=== PATIENT | female | born 1985 | race Asian ===

== ENCOUNTER 2016-11-22 16:28 | Emergency (ER) | payer OTHER ==
[2016-11-22 16:33] VITALS: RESP 16; TEMP 98.2
--- NOTE | 2016-11-22 16:40 | EDPHY ---
H & P Stated Complaint: 11/20 cervical procedure heaviness in chest since yest. Time Seen by Provider: 11/22/16 16:38 HPI/ROS: CHIEF COMPLAINT: Chest pressure, dyspnea HISTORY OF PRESENT ILLNESS: The patient is a 31 y/o female arriving with her complaining of central chest "stiffness" and dyspnea onset last night. She had a procedure to remove cervical polyps while under anesthesia 2 days ago. She does not know if she was intubated or not. She says her discomfort "feels like something is stuck" in her chest. Her symptoms are aggravated by eating and deep inspiration. She notes she has not had a bowel movement since before the surgery 3 days ago. She denies nausea, but tried to make herself vomit to improve symptoms. She is not currently using pain medication and has not tried any antacid medication for her symptoms. She denies leg pain or swelling, nausea, abdominal pain, fever, cough. No history of acid reflux. No FH of VTE. REVIEW OF SYSTEMS: A ten point review of systems was performed and is negative with the exception of the items mentioned in the HPI. - Personal History LMP (Females 10-55): Irregular Current Tetanus/Diphtheria Vaccine: Yes Current Tetanus Diphtheria and Acellular Pertussis (TDAP): Yes - Medical/Surgical History PMH: Cervical polyps and surgical removal 11/20/16. No significant family history. Hx Asthma: No Hx Chronic Respiratory Disease: No Hx Diabetes: No Hx Cardiac Disease: No Hx Renal Disease: No Hx Cirrhosis: No Hx Alcoholism: No Hx HIV/AIDS: No Hx Splenectomy or Spleen Trauma: No - Social History Smoking Status: Never smoked Additional Social History: Nonsmoker. No alcohol use. No illicit drug use. at bedside. Works in [employer]. - Physical Exam Exam: General Appearance: Alert. Vital signs reviewed. Eyes: Pupils equal and round, no conjunctival injection, no discharge. Anicteric. ENT, Mouth: Mucous membranes are moist, no oropharyngeal erythema or edema. Neck: No lymphadenopathy, supple. Respiratory: Lungs are clear to auscultation; no wheezes, rales, or rhonchi. Cardiovascular: Regular rate and rhythm; no murmur, rub, or gallop. Chest: No crepitus. No reproducible tenderness. Gastrointestinal: Abdomen is soft with mild midepigastric and RUQ tenderness, no masses or organomegaly, bowel sounds normal. Skin: Warm and dry, no rashes on exposed skin, normal color. Back: Nontender to palpation over the thoracolumbar spine. No CVAT. Extremities: No lower extremity edema, no calf tenderness or swelling. Neurological: Alert and oriented. Moving all four extremities easily and equally. Psychiatric: Normal affect. Constitutional: Initial Vital Signs Temperature (C) 36.8 C 11/22/16 16:31 Heart Rate 68 11/22/16 16:31 Respiratory Rate 16 11/22/16 16:31 Blood Pressure 109/67 11/22/16 16:31 O2 Sat (%) 99 11/22/16 16:31 O2 Delivery Mode Room Air Allergies/Adverse Reactions: No Known Allergies Allergy (Unverified 11/22/16 16:33) Medical Decision Making - Diagnostics EKG Interpretation: Twelve lead EKG reviewed and interpreted by me in [facility]. No acute ischemic changes. Imaging Results: Two view CXR reviewed by me in PACS. No pneumonia, pneumothorax, signs of bronchitis per radiology report. Imaging: I viewed and interpreted images myself ED Course/Re-evaluation: IV established. Labs drawn including CBC, CHEM. Patient placed on surveillance monitor. Chest x-ray ordered. The 12 lead EKG was interpreted by myself. Sinus rhythm 64. See hard copy and/ or "traceOWMer" electronic copy for interpretation. 1830: Chest x-ray shows no acute process. Reassessed patient and discussed work up thus far. GI cocktail administered for continued symptoms. 1920: Reassessed patient. She feels almost completely improved after GI cocktail. Abdomen is benign. She feels ready for discharge. I've recommended using OTC Zantac for symptoms and follow up with her PCP on Friday for unimproved symptoms. Return precautions given. HEART score is zero--very low risk of major cardiac event in next six weeks. It is possible that this is irritation secondary to endotracheal intubation ( not sure if she was intubated or not for her procedure three days ago)--I would have expected her to notice this immediately post-op rather than three days out. No signs of PNA or PTX on XSR. GERD is a strong possibility. - Data Points Laboratory Results: Laboratory Results 11/22/16 16:45 11/22/16 16:45 Medications Given: Discontinued Medications Al Hydroxide/Mg Hydroxide (Maalox Susp) 30 ml PO ONCE ONE Stop: 11/22/16 18:35 Last Admin: 11/22/16 18:41 Dose: 30 ml Hyoscyamine Sulfate (Levsin, Hyomax-Sl) 0.25 mg PO ONCE ONE Stop: 11/22/16 18:35 Last Admin: 11/22/16 18:41 Dose: 0.25 mg Famotidine/Sodium Chloride (Pepcid 20 Mg (Premix)) 50 mls @ 200 mls/hr IV EDNOW ONE Stop: 11/22/16 17:12 Last Admin: 11/22/16 17:07 Dose: 50 mls Lidocaine (Lidocaine 2% Viscous) 15 ml PO ONCE ONE Stop: 11/22/16 18:35 Last Admin: 11/22/16 18:41 Dose: 15 ml Departure - Departure Disposition: Home, Routine, Self-Care Clinical Impression: Epigastric abdominal pain Condition: Good Instructions: Gastroesophageal Reflux Disease (ED), Acute Abdominal Pain (ED) Additional Instructions: 1. Take Zantec as directed on the packaging for symptoms. 2. Follow up with your primary care provider on Friday for continued symptoms. 3. Return to the ED for severe pain, shortness of breath, uncontrollable vomiting, or other worsening of condition. Referrals: Corina Chaney MD [[facility] [place] Primary Care Provider] - As per Instructions Report Scribed for: Brigid Walker Report Scribed by: Victoria Olmos Date of Report: 11/22/16 Time of Report: 16:48 Physician Review and Approval Statement: 11/22/16 16:40 Portions of this note were transcribed by the behavioral medical director. I, Dr. Brigid Walker, personally performed the history, physical exam, and medical decision- making; and confirmed the accuracy of the information in the transcribed note.
--- NOTE | 2016-11-22 16:43 | CPEKG ---
Heart Rate: 64 RR Interval: 938 P-R Interval: 132 QRSD Interval: 80 QT Interval: 400 QTC Interval: 413 P [place]: 68 QRS [place]: 42 T Wave [place]: 45 EKG Severity - NORMAL ECG - EKG Impression: SINUS RHYTHM Electronically Signed By: Brigid Walker 23-Nov-2016 00:18:40
[2016-11-22] MEDS ORDERED: FAMOTIDINE 20 MG/NACL 50 ML IV ONE (16:58)
[2016-11-22 17:05] LABS: % IMMATURE GRANULYOCYTES 0.2 % (0.0-1.1); ABSOLUTE IMMATURE GRANULOCYTES 0.01 10^3/uL (0.00-0.10); ADD DIFF? NO; ADD MORPH? NO; ADD SCAN? NO; ATYPICAL LYMPHOCYTE FLAG 10 (0-99); FRAGMENT RBC FLAG 0 (0-99); HEMATOCRIT 38.5 % (38.0-47.0); HEMOGLOBIN 13.1 g/dL (12.6-16.3); LEFT SHIFT FLG 0 (0-99); LIPEMIA HEMOLYSIS FLAG 90 (0-99); MEAN CELL HEMOGLOBIN 27.8 pg (27.9-34.1); MEAN CELL VOLUME 81.6 fL (81.5-99.8); MEAN PLATELET VOLUME 11.9 fL (8.7-11.7); PLATELET CLUMPS FLAG 0 (0-99); PLATELET COUNT 217 10^3/uL (150-400); RED BLOOD CELL COUNT 4.72 10^6/uL (4.18-5.33); RED CELL DISTRIBUTION WIDTH 13.4 % (11.5-15.2)
[2016-11-22 17:13] LABS: ALANINE AMINOTRANSFERASE 36 IU/L (9-52); ALBUMIN 4.1 g/dL (3.5-5.0); ALKALINE PHOSPHATASE 42 IU/L (38-126); ANION GAP 8 mEq/L (8-16); ASPARTATE AMINOTRANSFERASE 23 IU/L (14-46); BILIRUBIN,TOTAL 0.5 mg/dL (0.1-1.4); BILIRUBIN-CONJUGATED 0.3 mg/dL (0.0-0.5); BILIRUBIN-UNCONJUGATED 0.2 mg/dL (0.0-1.1); CARBON DIOXIDE 24 mEq/l (22-31); CHLORIDE 107 mEq/L (97-110); CREATININE 0.7 mg/dL (0.6-1.0); GLOMERULAR FILTRATION RATE > 60; GLUCOSE 72 mg/dL (70-100); SODIUM 139 mEq/L (134-144)
[2016-11-22] MEDS ORDERED: LIDOCAINE 2% VISCOUS 15 ML UDCUP PO ONE (18:34)
[2016-11-22] MEDS ORDERED: MAG HYDROX/AL HYDROX/SIMETH 30 ML UDCUP PO ONE (18:34)
[2016-11-22] MEDS ORDERED: HYOSCYAMINE SULFATE 0.125 MG TAB PO ONE (18:34)
[2016-11-22 19:27] VITALS: BP 96/56; PULSE 67; O2SAT 92
== END 2016-11-22 19:32 | disposition home or self-care (01) ==
DX: R10.13 Epigastric pain (principal)
CPT/HCPCS: 96374

== ENCOUNTER → 2017-09-16 | Outpatient (CLI) | payer OTHER | LOC: FIMAGING 08:39 | PROVIDERS: ATTEND Advanced Practice Midwife | DX: O09.812 Supervision of pregnancy resulting from assisted reproductive technology, second trimester (principal); Z3A.24 24 weeks gestation of pregnancy ==

== ENCOUNTER 2018-01-08 17:22 | Inpatient (IN) | payer OTHER ==
[2018-01-08] MEDS ORDERED: AMPICILLIN SODIUM 2 GM in NS 100 ML IV ONE (18:40)
[2018-01-08] MEDS ORDERED: TERBUTALINE SULFATE 1 MG/ML VIAL IV PRN (18:40)
[2018-01-08] MEDS ORDERED: LR 1,000 ML IV PRN (18:40)
[2018-01-08] MEDS ORDERED: OLIVE OIL 118 ML BTL MISC PRN (18:40)
[2018-01-08] MEDS ORDERED: EPSOM SALT 454 GM TP PRN (18:40)
[2018-01-08] MEDS ORDERED: OXYTOCIN/RINGERS LACTATE 1,000 ML IV PRN (18:40)
[2018-01-08] MEDS ORDERED: LIDOCAINE 1% 300 MG/30 ML SDV SC PRN (18:40)
[2018-01-08] MEDS ORDERED: MISOPROSTOL 200 MCG TAB PR PRN (18:40)
[2018-01-08] MEDS ORDERED: IBUPROFEN 600 MG TAB PO PRN (18:40)
[2018-01-08 19:14] LABS: PLATELET COUNT 129 10^3/uL (150-400)
--- NOTE | 2018-01-08 19:15 | PDGENHP ---
History and Physical History and Physical: CARE: [facility] HPI: Patient is a 32 yo @41-0 wks that presents to L&D from office for cat 2 FHR tracing. Cyr balloon was placed @ 1600. She denies any LOF, VB. She does report dark brown spotting since this morning. She reports +FM. EDC: 01/01/18 which is based on FET consistent with Ultrasound at 7 weeks. Her is complicated by: IVF, right intramural fibroid, hypothyroid, vitamin D Deficiency, GBS bacteruria, anemia Review of Systems: Constitutional: Denies any fever, chills, or fatigue HEENT: denies any visual changes, difficulty swallowing, hearing loss Cardiovascular: Denies any chest pain, palpitations, leg swelling Respiratory: denies any cough, wheezing, or shortness of breathe GI: Denies any nausea, vomiting, diarrhea, constipation : denies any dysuria, urgency, frequency, vaginal bleeding Musculoskeletal: denies any muscle or bone pain Skin: denies any rashes Neuro: denies any headache, seizures, lightheadedness, dizziness, or loss of consciousness Psychiatric: denies any depression, anxiety, or SI/HI thoughts HISTORY: Previous OB history: MAB with D&C 2012 Past medical history: hypothyroid, vitamin D deficiency Past surgical history: Hysteroscopy- polyp 2017 Medications: PNV, vitamin D, synthyroid, folic acid, DHA, iron Allergies (list reaction): NKDA LABS: Rh: B+ ABS: Neg Rubella: Immune HbsAg: NR HIV: NR VDRL: NR 1hr: 73 GC: Neg Chlamydia: Neg Pap: Normal GBS: + BMI: (prepreg) 25 PHYSICAL EXAM: Constitutional: WN, A&Ox3 HEENT: normocephalic atraumatic, supple Heart: RRR, no murmur Chest: CTA-B Abdomen: Soft, nontender, gravid SVE: 1/80/-1, posterior (per exam in office when cyr was placed) Extremities: trace edema, negative homans sign Neuro: grossly normal Psych: normal affect assessment: Reassuring FHTs, baseline 120 +accels, +variable decels, moderate variability Contractions: toco none Assessment: 1) 32yo [id number] with IUP@41-0 wks 2) PD IOL with Cyr bulb 3) GBS + 4) Cat 2 FHR tracing Plan: 1) Admit to L&D 2) cont monitoring at this time 3) anticipate starting pitocin in AM 4) start IV abx @ 0400
[2018-01-08] MEDS ORDERED: LR 500 ML IV PRN (21:08)
[2018-01-08] MEDS ORDERED: CALCIUM CARBONATE 500 MG CHEWABLE TAB PO PRN (21:13)
[2018-01-08] MEDS ORDERED: ZOLPIDEM TARTRATE 5 MG TAB PO PRN (21:14)
[2018-01-08] MEDS ORDERED: OXYTOCIN/RINGERS LACTATE 500 ML IV SCH (21:30)
[2018-01-08] MEDS ORDERED: AMPICILLIN SODIUM 1 GM in NS 100 ML IV SCH (22:40)
[2018-01-09] MEDS ORDERED: AMPICILLIN SODIUM 2 GM/10 ML VIAL ONE (04:48)
[2018-01-09] MEDS ORDERED: AMPICILLIN SODIUM 2 GM in NS 100 ML IV ONE (04:52)
--- NOTE | 2018-01-09 06:26 | OBPROG ---
Labor Progress Note Assessment/Plan: Assessment: [id number] with IUP@41-1wks PD IOL GBS Positive cat 2 FHR tracing Plan: start pit once cat 1 FHR tracing AROM once abx in x 4 hr or PRN pain management PRN/WILLIE when pt request 01/09/18 06:23 Subjective/Intrapartum Course: 01/09/18 06:26 Pt feeling some discomfort, denies any need for pain relief at this time, states she is planning WILLIE once pain increases. FOB at BS and supportive. Objective: 01/08/18 18:48 Patient ABO/Rh B POSITIVE 01/08/18 18:48 - SVE Dilation (cm): 4 Effacement (%): 80 Station: -1 (very posterior cervix, pt does not tolerate exams well) - Contraction Pattern Assessment Current Contraction Pattern: Irregular - FHR Assessment [place] FHR (bpm): 130 FHR Pattern Variability: Moderate FHR Category: 2 (variable decelerations noted.) - Physical Exam General Appearance: WD/WN, alert Oxytocin Orders Assessment - Pre-Induction/Augmentation Assessment Gestational Age: 41 week(s) and 0 day(s) ICD10 Worksheet Patient Problems: Problems Problem Status Onset Encounter for induction of labor Acute Positive GBS test Acute Post-dates Acute - ICD10 Problem Qualifiers (1) Post-dates (2) Positive GBS test (3) Encounter for induction of labor
[2018-01-09] MEDS: LEVOTHYROXINE 25 MCG TAB PO SCH (07:04)
[2018-01-09] MEDS ORDERED: OXYTOCIN 10 UNIT/ML VIAL ONE (07:48)
[2018-01-09] MEDS ORDERED: MISOPROSTOL 200 MCG TAB ONE (07:48)
[2018-01-09] MEDS ORDERED: LIDOCAINE 1% 300 MG/30 ML SDV ONE (07:48)
[2018-01-09] MEDS ORDERED: OLIVE OIL 118 ML BTL ONE (07:48)
[2018-01-09] MEDS ORDERED: TERBUTALINE SULFATE 1 MG/ML VIAL ONE (07:48)
[2018-01-09] MEDS ORDERED: AMMONIA AROMATIC 1 EACH AMP IH ONE (07:48)
[2018-01-09] MEDS ORDERED: BUPIVACAINE 0.25% 30 ML SDV ONE (10:14)
[2018-01-09] MEDS ORDERED: PHENYLEPHRINE HCL 100 MCG/ML SYR ONE ×2 (10:14→11:45)
[2018-01-09] MEDS ORDERED: LR 500 ML IV SCH (10:30)
--- NOTE | 2018-01-09 10:33 | OBPROG ---
Labor Progress Note Assessment/Plan: Assessment: I had a long talk with the patient and her this morning regarding their progress, the baby's FHR tracing and these significant decelerations remote from delivery. I offered that she is having decels with most contractions so she is essentially already failing a contraction stress test. Discussed RBA, and ultimately recommended , which they are comfortable with. Consents signed, orders placed. Weight-based Ancef. Subjective/Intrapartum Course: 01/09/18 06:26 Pt feeling some discomfort, denies any need for pain relief at this time, states she is planning WILLIE once pain increases. FOB at BS and supportive. 01/09/18 16:48 I assumed care for Suzy at 0700 this AM. At that point she had recently been checked and was found to be 4cm, cyr balloon out, still intact, having irregular painful contractions. Baby having intermittent variable and 2-3 quite late and prolonged decelerations, not on Pitocin. 01/09/18 16:54 Objective: 01/08/18 18:48 Patient ABO/Rh B POSITIVE 01/08/18 18:48 - SVE Dilation (cm): 4 - Contraction Pattern Assessment Current Contraction Pattern: Irregular - Physical Exam General Appearance: WD/WN, alert, mild distress CNM Assessment - Uterine Assessment Contraction Strength: Moderate Contraction Frequency (minutes): 6-7 Oxytocin Orders Assessment - Pre-Induction/Augmentation Assessment Gestational Age: 41 week(s) and 0 day(s) - Heart Rate Pattern [place] FHR Baseline (bpm): 135 FHR Category: 2 FHR Pattern Variability: Moderate FHR Accelerations: Present FHR Decelerations: Variable ICD10 Worksheet Patient Problems: Problems Problem Status Onset Encounter for induction of labor Acute Positive GBS test Acute Post-dates Acute
[2018-01-09] MEDS ORDERED: LR 500 ML IV ONE ×2 (10:34→10:35)
[2018-01-09] MEDS ORDERED: ceFAZolin 2 GM/DEXTROSE 100 ML IV ONE (10:34)
[2018-01-09] MEDS ORDERED: DEXAMETHASONE 4 MG/ML VIAL ONE (10:39)
[2018-01-09] MEDS ORDERED: OXYTOCIN 100 UNITS/10 ML VIAL ONE (10:39)
[2018-01-09] MEDS ORDERED: ONDANSETRON 4 MG/2 ML VIAL ONE (10:39)
[2018-01-09] MEDS ORDERED: LR 1,000 ML IV SCH ×2 (11:00)
[2018-01-09] MEDS ORDERED: ePHEDrine SULFATE 25 MG/5 ML SYR ONE (11:20)
[2018-01-09] MEDS ORDERED: OXYCODONE/APAP 5/325 TAB PO PRN (11:29)
[2018-01-09] MEDS ORDERED: fentaNYL 100 MCG/2 ML INJ IVP PRN (11:29)
[2018-01-09] MEDS ORDERED: HYDROmorphONE/DILAUDID 1 MG/ML INJ IVP PRN (11:29)
[2018-01-09] MEDS ORDERED: PHENYLEPHRINE HCL 100 MCG/ML SYR IVP PRN (11:29)
--- NOTE | 2018-01-09 11:29 | PREANESOB ---
Obstetric Pre-Anesthesia Info - General Info Proposed Procedure: : 2 Para: 0 BENNIE: 01/01/18 Gestational Age: 41 week(s) and 0 day(s) - Labor Status Cervical Dilation per last OB SVE: 4 Station per last OB SVE: -1 (very posterior cervix, pt does not tolerate exams well) Indications for Current Section: Non-reas. Status Anesthesia Allergies/Adverse Reactions: Allergy/AdvReac Type Severity Reaction Status Date / Time No Known Allergies Allergy Unverified 11/22/16 16:33 Home Medications: Medication Instructions Recorded Synthroid 25 mcg (*) 01/09/18 Vitamin D3 4,000 i.unit 01/09/18 Visit Medications: Generic Name Dose Route Start Last Admin Trade Name Freq PRN Reason Stop Dose Admin Calcium Carbonate 500 mg 01/08/18 21:13 Tums PO 07/07/18 21:12 TID PRN Indigestion Ampicillin Sodium 1 gm/ Sodium 100 mls @ 200 mls/hr 01/08/18 22:40 01/09/18 09:22 Chloride IV 02/07/18 22:39 100 mls Q4H MANDEEP Administration Protocol Lactated Ringer's 1,000 mls @ 0 mls/hr 01/08/18 18:40 01/09/18 04:55 Lr IV 01/09/18 18:39 1,000 mls PRN PRN Administration SEE PROTOCOL CONDITIONS Protocol Per Protocol Oxytocin/Lactated Ringer's 1,000 mls @ 125 mls/hr 01/08/18 18:40 Pitocin 20 Units/Lr (Premix) IV PRN PRN Post bleeding Lactated Ringer's 500 mls @ 500 mls/hr 01/08/18 21:08 Lr IV 01/09/18 21:12 PRN PRN Maternal Hypotension Oxytocin/Lactated Ringer's 500 mls @ 0 mls/hr 01/08/18 21:30 01/09/18 10:09 Pitocin 30 Units/Lr (Premix) IV 07/07/18 21:29 500 mls CONT MANDEEP Administration Protocol Per Protocol Lactated Ringer's 1,000 mls @ 125 mls/hr 01/09/18 11:00 Lr IV 01/10/18 10:59 CONT MANDEEP Ibuprofen 600 mg 01/08/18 18:40 Motrin PO ONCE PRN post , pain Levothyroxine Sodium 25 mcg 01/09/18 06:00 01/09/18 07:04 Synthroid PO 07/08/18 05:59 25 mcg DAILY AT 6AM MANDEEP Administration Lidocaine HCl 300 mg 01/08/18 18:40 Lidocaine Hcl 1% SC 07/07/18 18:39 ONCE PRN episiotomy Magnesium Sulfate 454 gm 01/08/18 18:40 Epsom Salt TP 07/07/18 18:39 Q1H PRN perineal discomfort Misoprostol 800 - 1,000 mcg 01/08/18 18:40 Cytotec AK ONCE PRN Vaginal Atony/Bleeding [place] Oil 118 ml 01/08/18 18:40 Sweet Oil MISC 07/07/18 18:39 ONCE PRN perineal massage Terbutaline Sulfate 0.25 mg 01/08/18 18:40 Brethine IV 07/07/18 18:39 ONCE PRN Tachysystole Zolpidem Tartrate 5 mg 01/08/18 21:14 Ambien PO 07/07/18 21:13 HS PRN Sleep/Insomnia Discontinued Medications Generic Name Dose Route Start Last Admin Trade Name Freq PRN Reason Stop Dose Admin Ammonia (Aromatic Spirit) Confirm 01/09/18 07:48 Ammonia Aromatic Administered 01/09/18 07:49 Dose 1 each IH .STK-MED ONE Ampicillin Sodium Confirm 01/09/18 04:48 Ampicillin Administered 01/09/18 04:49 Dose 2 gm .ROUTE .STK-MED ONE Bupivacaine HCl Confirm 01/09/18 10:14 Sensorcaine 0.25% Sdv Administered 01/09/18 10:15 Dose 30 ml .ROUTE .STK-MED ONE Dexamethasone Confirm 01/09/18 10:39 Decadron Injection Administered 01/09/18 10:40 Dose 4 mg .ROUTE .STK-MED ONE Ephedrine Sulfate Confirm 01/09/18 11:20 Ephedrine Sulfate Administered 01/09/18 11:21 Dose 25 mg .ROUTE .STK-MED ONE Ampicillin Sodium 2 gm/ Sodium 110 mls @ 220 mls/hr 01/08/18 18:40 Chloride IV 01/08/18 19:09 ONCE ONE Protocol Ampicillin Sodium 2 gm/ Sodium 110 mls @ 220 mls/hr 01/09/18 04:52 01/09/18 05:01 Chloride IV 01/09/18 05:21 110 mls ONCE ONE Administration Protocol Lactated Ringer's 500 mls @ 0 mls/hr 01/09/18 10:30 Lr IV 01/09/18 10:31 CONT MANDEEP As Directed Cefazolin Sodium/Dextrose 100 mls @ 200 mls/hr 01/09/18 10:34 01/09/18 10:59 Ancef 2 Gm IV 01/09/18 11:03 100 mls ONCALL ONE Administration Protocol Lactated Ringer's 500 mls @ 0 mls/hr 01/09/18 10:34 Lr IV 01/09/18 10:35 ONCE ONE As Directed Lidocaine HCl Confirm 01/09/18 07:48 Lidocaine Hcl 1% Administered 01/09/18 07:49 Dose 300 mg .ROUTE .STK-MED ONE Misoprostol Confirm 01/09/18 07:48 Cytotec Administered 01/09/18 07:49 Dose 1,000 mcg .ROUTE .STK-MED ONE Morphine Sulfate Confirm 01/09/18 10:40 Morphine Sulfate Administered 01/09/18 10:41 Dose 10 mg .ROUTE .STK-MED ONE [place] Oil Confirm 01/09/18 07:48 Sweet Oil Administered 01/09/18 07:49 Dose 118 ml .ROUTE .STK-MED ONE Ondansetron HCl Confirm 01/09/18 10:39 Zofran Administered 01/09/18 10:40 Dose 4 mg .ROUTE .STK-MED ONE Oxytocin Confirm 01/09/18 07:48 Pitocin Administered 01/09/18 07:49 Dose 40 unit .ROUTE .STK-MED ONE Oxytocin Confirm 01/09/18 10:39 Pitocin Administered 01/09/18 10:40 Dose 100 units .ROUTE .STK-MED ONE Phenylephrine HCl Confirm 01/09/18 10:14 Neosynephrine Administered 01/09/18 10:15 Dose 1,000 mcg .ROUTE .STK-MED ONE Terbutaline Sulfate Confirm 01/09/18 07:48 Brethine Administered 01/09/18 07:49 Dose 1 mg .ROUTE .STK-MED ONE - Vital Signs Height/Weight (Nursing): Height 160.02 cm Weight 83.5 kg - Focused Exam Neck exam: FROM Mallampati Score: Class 2 Mouth exam: normal dental/mouth exam Pulmonary: clear to auscultation Cardiovascular: regular rate and rhythym Labs: 01/08/18 18:48 Patient ABO/Rh B POSITIVE 01/08/18 18:48 - Plan Consent Signed and on Chart: Yes Patient/Guardian Understands and Agrees to Plan: Yes
[2018-01-09] MEDS ORDERED: NALOXONE HCL 0.4 MG/ML INJ IVP PRN (11:30)
[2018-01-09] MEDS ORDERED: METOCLOPRAMIDE 10 MG/2 ML VIAL IVP PRN (11:30)
[2018-01-09] MEDS ORDERED: ONDANSETRON 4 MG/2 ML VIAL IVP PRN (11:30)
--- NOTE | 2018-01-09 12:31 | SUROPNOTE ---
[facility] Operative Report - Surgery Date of Operation: 01/09/18 Surgeon: Fritz Gutierrez Floral Designer: FELIX Pimentel Anesthesiologist: Nelson Sanchez MD Anesthesia: Spinal Pre-op Diagnosis: intollerance of labor, remote from delivery Post-op Diagnosis: Same, nuchal cord x 1, true knot in cord Procedure: Primary low transverse section Findings: ROP position, single nuchal cord, true knot in cord Inf/Abcess present in the surg proc area at time of surgery?: No EBL: 700cc Complications: None Specimen(s): Cord blood gasses collected, placenta sent to path. Technique: The patient was taken to the OR where spinal was was placed and anesthesia found to be adequate. The patient was then positioned supine with a leftward tilt and a time-out was performed. She was given weight-based antibiotics prior to skin incision. The abdomen was prepped and draped in normal sterile fashion. A Pfannenstiel skin incision was made with the scalpel and carried down to the fascia. The fascia was incised in the midline and the incision extended bilaterally sharply with scissors. The fascia was dissected off of the underlying rectus muscles superiorly and inferiorly also sharply using scissors. The rectus were in the midline and the peritoneum identified and entered bluntly without issue. The peritoneal incision was extended and the bladder blade was then placed. The vesicouterine junction was identified and a bladder flap created sharply and developed bluntly. A transverse incision was made with the scalpel in the lower uterine segment and extended with cephalad and caudad traction on the incision edges. The head was encountered and easily elevated out of the pelvis and delivered atraumatically, followed by the shoulders and body. Noted as above to be in ROP position, with single nuchal cord (reduced easily) and true knot in cord. The nose and mouth were bulb suctioned. We did wait for 60 seconds before clamping and cutting the cord and then the infant was handed to pediatric staff. Cord blood gases were sent and the placenta was sent to pathology. The uterus was then exteriorized and carefully wiped of all debris. The uterus was closed in two layers - the first layer was running with 180 0-vloc and the second a vertical imbricating layer using 0-vicryl. We did note a small hematoma forming at the left corner of the incision. I placed two large figure- of-eight sutures with 0-vicryl to try to address the source of that bleeding. Over many minutes of watching this we did not see the size change at all, and even looked smaller. The gutters were cleared of all clots. The uterine incision was reinspected and found to be hemostatic . The uterus was then returned to the abdomen. The fascia was elevated and the rectus muscles and subcutaneous tissues were found to be hemostatic. The fascia was closed with a running 0-Vicryl - single suture. The subcutaneous tissues were irrigated and hemostasis obtained. The subcutaneous space was closed with interrupted sutures of 2-0 vicryl. The skin was closed with 4-0 vloc undyed and then covered with Medipore dressing. The patient tolerated the procedure and was taken to recovery in stable condition. Lap, needle, sponge, and instrument count were announced as correct times two. I was present and scrubbed for the entire case.
--- NOTE | 2018-01-09 12:35 | OBDEL ---
Info Type: Primary Presentation at Delivery: Vertex (OP) L&D Analgesia/Anesthesia Type: Spinal GBS+: Yes Antibiotic Used for + GBS: Ampicillin (Also recieved Ancef prior to OR) Intrapartum Medications: Generic Name Dose Route Start Last Admin Trade Name Rene PRN Reason Stop Dose Admin Ampicillin Sodium 1 gm/ Sodium 100 mls @ 200 mls/hr 01/08/18 22:40 01/09/18 09:22 Chloride IV 02/07/18 22:39 100 mls Q4H MANDEEP Administration Protocol Lactated Ringer's 1,000 mls @ 0 mls/hr 01/08/18 18:40 01/09/18 04:55 Lr IV 01/09/18 18:39 1,000 mls PRN PRN Administration SEE PROTOCOL CONDITIONS Protocol Per Protocol Oxytocin/Lactated Ringer's 500 mls @ 0 mls/hr 01/08/18 21:30 01/09/18 10:09 Pitocin 30 Units/Lr (Premix) IV 07/07/18 21:29 500 mls CONT MANDEEP Administration Protocol Per Protocol Levothyroxine Sodium 25 mcg 01/09/18 06:00 01/09/18 07:04 Synthroid PO 07/08/18 05:59 25 mcg DAILY AT 6AM MANDEEP Administration Discontinued Medications Generic Name Dose Route Start Last Admin Trade Name Rene PRN Reason Stop Dose Admin Ampicillin Sodium 2 gm/ Sodium 110 mls @ 220 mls/hr 01/09/18 04:52 01/09/18 05:01 Chloride IV 01/09/18 05:21 110 mls ONCE ONE Administration Protocol Cefazolin Sodium/Dextrose 100 mls @ 200 mls/hr 01/09/18 10:34 01/09/18 10:59 Ancef 2 Gm IV 01/09/18 11:03 100 mls ONCALL ONE Administration Protocol - Hospital Course Intrapartum: 01/09/18 06:26 Pt feeling some discomfort, denies any need for pain relief at this time, states she is planning WILLIE once pain increases. FOB at BS and supportive. Vaginal Delivery - Labor and Delivery Cord Gases: Cord Gases Cord Blood PCO2 38.3 mmHg (37-60) 01/09/18 11:36 Cord Base Excess -5.1 mEq/L (-13.6--3.2) 01/09/18 11:36 Cord ABG pH TNP 01/09/18 11:36 Cord VBG pH 7.33 (7.20-7.42) 01/09/18 11:36 Operative Report - Delivery Pre-op Diagnoses: intollerance of labor, remote from delivery Post-op Diagnoses: Same, ROP position, single nuchal cord, true knot in cord History of Prior Section: No Nulliparous Prior to Delivery: No Indications for Current Section: Non-reas. Status Procedure: Unscheduled, Low Transverse Surgeon: Fritz Gutierrez Purchase Order Checker: Guerita Siu Anesthesiologist: Nelson Sanchez Complications: None Findings: ROP position, true knot in cord, single nuchal cord Specimen(s)/Path: Placenta EBL: 700cc Cord Gases: Cord Gases Cord Blood PCO2 38.3 mmHg (37-60) 01/09/18 11:36 Cord Base Excess -5.1 mEq/L (-13.6--3.2) 01/09/18 11:36 Cord ABG pH TNP 01/09/18 11:36 Cord VBG pH 7.33 (7.20-7.42) 01/09/18 11:36 Data BENNIE: 01/01/18 Gestational Age: 41 week(s) and 1 day(s) [place] Delivery Date: 01/09/18 Delivery Time: 11:00 Sex of : Male (Rishaan) Score (1 Min): 8 Score (5 Min): 9 ICD10 Worksheet Patient Problems: Problems Problem Status Onset Encounter for induction of labor Acute Positive GBS test Acute Post-dates Acute
--- NOTE | 2018-01-09 15:19 | POSTANESTH ---
Post Anesthetic Evaluation Cardiovascular Status: Normal, Stable Respiratory Status: Normal, Stable Level of Consciousness/Mental Status: Can Participate in Eval, Alert and Oriented Pain Control: Adequate, Prn Tx Ordered Nausea/Vomiting Control: Adequate, Prn Tx Ordered Complications Possibly Related to Anesthesia: None Noted
[2018-01-09] MEDS ORDERED: DOCUSATE SODIUM 100 MG CAP PO PRN (15:35)
[2018-01-09] MEDS ORDERED: PROMETHAZINE HCL 25 MG/ML INJ IVP PRN (15:35)
[2018-01-09] MEDS: KETOROLAC 30 MG/1 ML SDV IVP SCH ×2 (16:01→22:19)
[2018-01-09] MEDS: ACETAMINOPHEN 325 MG TAB PO SCH (19:18)
[2018-01-10] MEDS: KETOROLAC 30 MG/1 ML SDV IVP SCH ×2 (03:59→11:55)
[2018-01-10] MEDS: ACETAMINOPHEN 325 MG TAB PO SCH ×4 (04:00→18:44)
[2018-01-10] MEDS: LEVOTHYROXINE 25 MCG TAB PO SCH (07:48)
[2018-01-10] MEDS ORDERED: MAGNESIUM HYDROXIDE 30 ML UDCUP PO PRN (08:56)
[2018-01-10] MEDS ORDERED: BISACODYL 10 MG SUPP PR PRN (08:56)
[2018-01-10] MEDS ORDERED: POLYETHYLENE GLYCOL 3350 17 GM PKT PO PRN (08:56)
[2018-01-10] MEDS ORDERED: LACTULOSE 20 GM/30 ML UDCUP PO PRN (08:56)
[2018-01-10] MEDS: SENNOSIDES/DOCUSATE SODIUM TAB PO SCH ×2 (11:50→21:41)
[2018-01-10] MEDS: FERROUS SULFATE 325 MG TAB PO SCH ×2 (11:50→21:41)
[2018-01-10] MEDS: SIMETHICONE 80 MG TAB CHEW PO PRN (11:51)
--- NOTE | 2018-01-10 11:55 | OBPP ---
Progress Note Assessment/Plan: Assessment: [id number] s/p primary c/s anemia POD#1 Plan: routine PO care support PRN start PO iron anticipate d/c home in 48-72hr 01/10/18 11:52 Subjective/ Course: 01/10/18 11:53 Pt doing well. She reports min bleeding and pain. She states pain is increased with ambulation. She is . She has lots of support (family @BS). She denies any CP, SOB. Objective: 01/10/18 06:15 Patient ABO/Rh B POSITIVE 01/08/18 18:48 Temp Pulse Resp BP Pulse Ox 36.6 C 72 16 91/58 L 96 01/10/18 07:53 01/10/18 05:59 01/10/18 05:59 01/10/18 07:53 01/10/18 07:53 Uterine Position/Fundal Height: Umbilicus -1, Midline Uterine Tone: Firm Physical Exam - Physical Exam General Appearance: WD/WN, alert, no apparent distress Neck: supple Respiratory: normal breath sounds Cardiac/Chest: regular rate, rhythm Abdomen: non-tender, soft, distended, dressing (C/D/I) Extremities: pedal edema Skin: normal color, warm/dry Neuro/Psych: alert, normal mood/affect, oriented x 3
[2018-01-10] MEDS: IBUPROFEN 600 MG TAB PO SCH ×2 (18:43→23:54)
[2018-01-11] MEDS: ACETAMINOPHEN 325 MG TAB PO SCH ×5 (01:20→22:41)
[2018-01-11] MEDS: LEVOTHYROXINE 25 MCG TAB PO SCH (06:08)
[2018-01-11] MEDS: IBUPROFEN 600 MG TAB PO SCH ×3 (06:08→19:57)
[2018-01-11] MEDS: oxyCODONE IR 5 MG TAB PO PRN ×2 (07:58→14:44)
[2018-01-11] MEDS: SENNOSIDES/DOCUSATE SODIUM TAB PO SCH ×2 (08:38→22:42)
[2018-01-11] MEDS: SIMETHICONE 80 MG TAB CHEW PO PRN (08:38)
[2018-01-11] MEDS: FERROUS SULFATE 325 MG TAB PO SCH ×2 (08:38→22:42)
--- NOTE | 2018-01-11 11:31 | OBPP ---
Progress Note Assessment/Plan: Assessment: POD2 s/p PLTCS for NRFHT remote from delivery. - Routine cares, doing great. - Low H/H - on BID iron. No ongoing bleeding. - Likely dc home tomorrow. [place] Subjective/ Course: 01/10/18 11:53 Pt doing well. She reports min bleeding and pain. She states pain is increased with ambulation. She is . She has lots of support (family @BS). She denies any CP, SOB. 01/11/18 18:43 Doing great - pain well controlled, up and ambulating, voiding. Likely wants to go home tomorrow. Objective: 01/10/18 06:15 Patient ABO/Rh B POSITIVE 01/08/18 18:48 Temp Pulse Resp BP Pulse Ox 36.2 C 62 20 103/75 95 01/11/18 08:00 01/11/18 08:00 01/11/18 08:00 01/11/18 08:00 01/11/18 08:00 Uterine Position/Fundal Height: At Umbilicus Uterine Tone: Firm Physical Exam - Physical Exam Abdomen: incision (CDI sutures)
[2018-01-11] MEDS ORDERED: POLYETHYLENE GLYCOL 3350 17 GM PKT PO PRN (20:03)
[2018-01-12] MEDS: IBUPROFEN 600 MG TAB PO SCH ×3 (00:48→12:58)
[2018-01-12] MEDS: LEVOTHYROXINE 25 MCG TAB PO SCH (06:01)
[2018-01-12] MEDS: ACETAMINOPHEN 325 MG TAB PO SCH ×2 (06:01→12:56)
[2018-01-12 08:06] VITALS: BP 111/63
[2018-01-12] MEDS: FERROUS SULFATE 325 MG TAB PO SCH (12:37)
[2018-01-12] MEDS: SENNOSIDES/DOCUSATE SODIUM TAB PO SCH (12:38)
--- NOTE | 2018-01-12 14:09 | OBGCSDC ---
General Delivery Information - General Info : 2 Para: 1 Abortions: 1 Type: Primary L&D Analgesia/Anesthesia Type: Spinal Admission Date: 01/08/18 Labs: Patient ABO/Rh B POSITIVE 01/08/18 18:48 Hct 29.6 % (38.0-47.0) L 01/10/18 06:15 - Hospital Course Intrapartum: 01/09/18 06:26 Pt feeling some discomfort, denies any need for pain relief at this time, states she is planning WILLIE once pain increases. FOB at BS and supportive. 01/09/18 16:48 I assumed care for Suzy at 0700 this AM. At that point she had recently been checked and was found to be 4cm, cyr balloon out, still intact, having irregular painful contractions. Baby having intermittent variable and 2-3 quite late and prolonged decelerations, not on Pitocin. 01/09/18 16:54 : 01/10/18 11:53 Pt doing well. She reports min bleeding and pain. She states pain is increased with ambulation. She is . She has lots of support (family @). She denies any CP, SOB. 01/11/18 18:43 Doing great - pain well controlled, up and ambulating, voiding. Likely wants to go home tomorrow. 01/12/18 14:05 Pt is doing well today. She has good pain control on po meds. She is ambulating, voiding without difficulty and had a normal BM today and yesterday. Breast feeding is going well and her milk is starting to come in. They are ready to d.c home - Delivery Providers Surgeon: Fritz Gutierrez Weed Thinner: Guerita Siu Anesthesiologist: Nelson Sanchez - Delivery Indications for Current Section: Non-reas. Status Surgical Procedures: Unscheduled, Low Transverse Intra-op Complications: None EBL: 700cc Data BENNIE: 01/01/18 Gestational Age: 41 week(s) and 4 day(s) [place] Delivery Date: 01/09/18 Delivery Time: 11:34 Sex of : Male Weight (gm): 2852 g Score (1 Min): 8 Score (5 Min): 9 Discharge Information - Discharge Information Prescriptions: oxyCODONE IR [Oxycodone Ir (*)] 5 - 10 mg PO Q4HRS PRN #30 tab PRN Reason: Pain, Severe Ibuprofen [Motrin (*)] 600 mg PO Q6HRS #30 tab Condition: Good Instruction/Follow Up: Two Weeks, Four Weeks, Six Weeks
--- NOTE | 2018-01-12 14:09 | OBPP ---
Progress Note Assessment/Plan: Assessment: 32 y/o POD #3 s/p LTCS secondary to intolerance to labor Plan: D/c home today with Rx Ibuprofen, Tylenol and Oxy Ir prn. Follow-up @ [facility] 2,4 and 6 weeks. 01/12/18 14:08 Subjective/ Course: 01/10/18 11:53 Pt doing well. She reports min bleeding and pain. She states pain is increased with ambulation. She is . She has lots of support (family @BS). She denies any CP, SOB. 01/11/18 18:43 Doing great - pain well controlled, up and ambulating, voiding. Likely wants to go home tomorrow. 01/12/18 14:05 Pt is doing well today. She has good pain control on po meds. She is ambulating, voiding without difficulty and had a normal BM today and yesterday. Breast feeding is going well and her milk is starting to come in. They are ready to d.c home Objective: 01/10/18 06:15 Patient ABO/Rh B POSITIVE 01/08/18 18:48 Temp Pulse Resp BP Pulse Ox 36.2 C 70 16 111/63 97 01/12/18 07:20 01/12/18 07:20 01/12/18 07:20 01/12/18 07:20 01/12/18 07:20 Uterine Position/Fundal Height: Umbilicus -2 Uterine Tone: Firm Physical Exam - Physical Exam General Appearance: alert, no apparent distress Neck: non-tender, full range of motion, supple Respiratory: chest non-tender, lungs clear, normal breath sounds Cardiac/Chest: regular rate, rhythm Abdomen: normal bowel sounds, incision (c/d/i) Extremities: swelling (2+), Balbir's sign (neg)
== END 2018-01-12 15:30 | disposition home or self-care (01) | DRG 766 ==
LOC: FLD 17:22 → FOB 01-09 15:57
PROVIDERS: ADMIT Advanced Practice Midwife; ATTEND Obstetrics & Gynecology
PROC: 10D00Z1 Extraction of Products of Conception, Low, Open Approach (ICD-10-PCS; principal; 2018-01-09)
DX: O76 Abnormality in fetal heart rate and rhythm complicating labor and delivery (principal); O34.13 Maternal care for benign tumor of corpus uteri, third trimester; O69.82X0 Labor and delivery complicated by other cord entanglement, without compression, not applicable or unspecified; O99.02 Anemia complicating childbirth; O99.284 Endocrine, nutritional and metabolic diseases complicating childbirth; D25.1 Intramural leiomyoma of uterus; D64.9 Anemia, unspecified; E55.9 Vitamin D deficiency, unspecified; E03.9 Hypothyroidism, unspecified; Z37.0 Single live birth; Z3A.41 41 weeks gestation of pregnancy
CPT/HCPCS: J0290; J0690; J1100; J1885; J2270; J2370; J2405; J2590; J3105